=== PATIENT | female | born 1985 | race Caucasian/White ===

== ENCOUNTER 2017-08-22 07:19 | Observation (INO) | payer OTHER | END 2017-08-22 11:08 | disposition home or self-care (01) | LOC: INTOOBSV 07:19 → FLD 07:19 | PROVIDERS: ADMIT Obstetrics & Gynecology; ATTEND Obstetrics & Gynecology | DX: O99.89 Other specified diseases and conditions complicating pregnancy, childbirth and the puerperium (principal); Z3A.39 39 weeks gestation of pregnancy ==

== ENCOUNTER 2017-08-22 20:25 | Inpatient (IN) | payer OTHER ==
[2017-08-22] MEDS ORDERED: OLIVE OIL 118 ML BTL MISC PRN (20:46)
[2017-08-22] MEDS ORDERED: TERBUTALINE SULFATE 1 MG/ML VIAL IV PRN (20:46)
[2017-08-22] MEDS ORDERED: OXYTOCIN 20 UNIT in LR 1,000 ML IV PRN (20:46)
[2017-08-22] MEDS ORDERED: EPSOM SALT 454 GM TP PRN (20:46)
[2017-08-22] MEDS ORDERED: LR 1,000 ML IV PRN (20:46)
[2017-08-22 21:16] LABS: % IMMATURE GRANULYOCYTES 1.1 % (0.0-1.1); ABSOLUTE IMMATURE GRANULOCYTES 0.14 10^3/uL (0.00-0.10); ADD DIFF? NO; ADD MORPH? NO; ADD SCAN? NO; ATYPICAL LYMPHOCYTE FLAG 0 (0-99); FRAGMENT RBC FLAG 0 (0-99); HEMATOCRIT 40.2 % (38.0-47.0); HEMOGLOBIN 13.8 g/dL (12.6-16.3); LEFT SHIFT FLG 10 (0-99); LIPEMIA HEMOLYSIS FLAG 90 (0-99); MEAN CELL HEMOGLOBIN 27.7 pg (27.9-34.1); MEAN CELL HEMOGLOBIN CONCENTR. 34.3 g/dL (32.4-36.7); MEAN CELL VOLUME 80.6 fL (81.5-99.8); MEAN PLATELET VOLUME 9.6 fL (8.7-11.7); PLATELET CLUMPS FLAG 0 (0-99); PLATELET COUNT 232 10^3/uL (150-400); RED BLOOD CELL COUNT 4.99 10^6/uL (4.18-5.33); RED CELL DISTRIBUTION WIDTH 14.3 % (11.5-15.2)
[2017-08-22] MEDS ORDERED: fentaNYL 2MCG/ML/BUP 0.1% RTU 100 ML BAG EP ONE (21:30)
[2017-08-22] MEDS ORDERED: BUPIVACAINE 0.25% 30 ML SDV ONE (21:31)
[2017-08-22] MEDS ORDERED: PHENYLEPHRINE HCL 100 MCG/ML SYR ONE (21:31)
[2017-08-22] MEDS ORDERED: LIDO/EPI 2% **for epidural** 20 ML SDV ONE (22:06)
[2017-08-22] MEDS ORDERED: PHENYLEPHRINE HCL 100 MCG/ML SYR IVP PRN (22:25)
[2017-08-22] MEDS ORDERED: ONDANSETRON 4 MG/2 ML VIAL IVP PRN (22:25)
--- NOTE | 2017-08-22 22:25 | PREANESOB ---
Obstetric Pre-Anesthesia Info - General Info Proposed Procedure: Continuous Labor Epidural for pain control during labor : 1 Para: 0 - Info Status: Full Term Monitors: External FHR Baseline (bpm): 120 - Labor Status Cervical Dilation per last OB SVE: 3 Magnesium Sulfate in Use: No Indications for Labor Analgesia: Pain Control Labor Epidural: Yes Anesthesia ROS: Review of systems negative except for patient in labor Allergies/Adverse Reactions: Allergy/AdvReac Type Severity Reaction Status Date / Time Sulfa (Sulfonamide Allergy Verified 08/22/17 10:49 Antibiotics) Home Medications: Medication Instructions Recorded Vit27&Calcium/Iron/FA 08/22/17 [] Visit Medications: Generic Name Dose Route Start Last Admin Trade Name Freq PRN Reason Stop Dose Admin Lactated Ringer's 1,000 mls @ 0 mls/hr 08/22/17 20:46 Lr IV 02/18/18 20:45 PRN PRN SEE PROTOCOL CONDITIONS Protocol Per Protocol Oxytocin 20 unit/ Lactated 1,002 mls @ 150 mls/hr 08/22/17 20:46 Ringer's IV PRN PRN Post- bleeding Ibuprofen 600 mg 08/22/17 20:46 Motrin PO 02/18/18 20:45 Q6HRS PRN post , inflammation Magnesium Sulfate 454 gm 08/22/17 20:46 Epsom Salt TP 02/18/18 20:45 Q1H PRN perineal discomfort Muir Oil 118 ml 08/22/17 20:46 Sweet Oil MISC 02/18/18 20:45 ONCE PRN perineal massage Terbutaline Sulfate 0.25 mg 08/22/17 20:46 Brethine IV 02/18/18 20:45 ONCE PRN Tachysystole Discontinued Medications Generic Name Dose Route Start Last Admin Trade Name Freq PRN Reason Stop Dose Admin Bupivacaine HCl Confirm 08/22/17 21:31 Sensorcaine 0.25% Sdv Administered 08/22/17 21:32 Dose 30 ml .ROUTE .STK-MED ONE Fentanyl/Bupivacaine HCl Confirm 08/22/17 21:30 Fentanyl/Bupivacaine/Ns 2 Mcg/Ml 0.1% (Premix Administered 08/22/17 21:31 Dose 100 ml EP .STK-MED ONE Lidocaine/Epinephrine Confirm 08/22/17 22:06 Xylocaine 2%-Epi 1:200,000 Administered 08/22/17 22:07 Dose 20 ml .ROUTE .STK-MED ONE Phenylephrine HCl Confirm 08/22/17 21:31 Neosynephrine Administered 08/22/17 21:32 Dose 1,000 mcg .ROUTE .STK-MED ONE - Anesthesia History Response to Local Anesthetics: Normal Anesthesia & Operative History: No Prior Problems Family Anesthesia History: Not Applicable - Social History Substance Use/Abuse: Denies - Focused Exam Latest Vital Signs (Nursing): See OB nursing notes Airway: Mallapati II, normal dentition. Respiratory: lungs clear, normal breath sounds Cardiovascular: normal peripheral pulses ASA Status: II Labs: 08/22/17 21:05 Patient ABO/Rh B POSITIVE 08/22/17 21:05 - Plan Consent Signed and on Chart: Yes Patient/Guardian Understands and Agrees to Plan: Yes Urgent/Emergent Case: Matthew valverde completed preop but documented later for safe timely pt care (Verbal interview obtained by Dr. Alan. Later documented as patient in distress from labor pain.)
[2017-08-22] MEDS ORDERED: fentaNYL 2MCG/ML/BUP 0.1% RTU 100 ML EP SCH (22:30)
[2017-08-22] MEDS ORDERED: LR 500 ML IV SCH (22:30)
--- NOTE | 2017-08-22 23:07 | OBPROG ---
Labor Progress Note Assessment/Plan: Assessment:cat 1 fhr contractions 2-6-7 minutes apart. pain well managed after the epidural exam after epidural 4-5/90/-2 cephalic soft probable OP positioning/ back pain slow progress prodromal labor probable rom 1500 this afternoon clear fluid at this time no meconium noted attempt to rom no fluid + bloody show Plan:pitocin per protocol , expectant management of labor 08/22/17 23:04 Subjective/Intrapartum Course: prodromal labor since . Srom minimal fluid probable at 1500 08/22/2017. Attempt arom no fluid. 08/22/17 23:02 Feeling better after the epidural. Denies pain. Ok with pitocin to allow for regular contractions. Reassuring fhr Objective: 08/22/17 21:05 Patient ABO/Rh B POSITIVE 08/22/17 21:05 - SVE Dilation (cm): 4, 5 Effacement (%): 90 Station: -1 Membranes: AROM - Procedures Non-surgical Procedures: Amniotomy, Other (Specify) (no fluid proble srom at 1500 today 08/22/2017) - Physical Exam General Appearance: WD/WN, alert, no apparent distress Respiratory: chest non-tender, lungs clear, normal breath sounds Cardiac/Chest: regular rate, rhythm Abdomen: normal bowel sounds Extremities: normal range of motion, Melissa's sign (negative bilaterally) DTR- Lower Extremities: Knee (R): 3+, Knee (L): 3+ (no clonus bilaterally) Skin: normal color, warm/dry Neuro/Psych: no motor/sensory deficits, alert, normal mood/affect, oriented x 3 Oxytocin Orders Assessment - Pre-Induction/Augmentation Assessment Gestational Age: 39 week(s) and 4 day(s) ICD10 Worksheet Patient Problems: Problems Problem Status Onset term labor Acute
[2017-08-22] MEDS ORDERED: LIDOCAINE 1% 300 MG/30 ML SDV ONE (23:15)
[2017-08-22] MEDS ORDERED: OLIVE OIL 118 ML BTL ONE (23:15)
[2017-08-22] MEDS ORDERED: TERBUTALINE SULFATE 1 MG/ML VIAL ONE (23:15)
[2017-08-22] MEDS ORDERED: AMMONIA AROMATIC 1 EACH AMP IH ONE (23:15)
[2017-08-22] MEDS ORDERED: OXYTOCIN 10 UNIT/ML VIAL ONE (23:15)
[2017-08-22] MEDS ORDERED: MISOPROSTOL 200 MCG TAB ONE (23:16)
[2017-08-22] MEDS ORDERED: OXYTOCIN/RINGERS LACTATE 500 ML IV SCH (23:30)
--- NOTE | 2017-08-23 00:03 | GHP ---
[f rep st] HISTORY AND PHYSICAL DATE OF ADMISSION: 08/22/2017 The patient is a 32-year-old, 1, para 0, with an EDC of 08/25/2017, which gives her a gestati onal age of 39-4/7 weeks. The patient has been coming since early in 1st trimester, 9 weeks to [facility] for care. The patient has been having prodromal labor since . Came in on ida for an exam and was sent home. Was 1 cm at that time. Came in again tonight at 9 o'clock. At that time, patient was 2-3 cm, 80%, 0 station. Cervix was anterior and soft. MEDICAL HISTORY: Benign. SURGICAL HISTORY: Negative. SOCIAL HISTORY: Patient lives with . This is patient's 1st . Denies tobacco use. Denies drug use. FAMILY HISTORY: Noncontributory. HISTORY: The patient has gained 50 pounds with the . GYNECOLOGICAL HISTORY: Noncontributory. LABS: Patient is B-positive. Antibody negative. RPR is nonreactive. Rubella is immune. Hepatitis is negative. HIV is negative. Trio screen was negative. Verifi was negative. Pap, gonorrhea and chlamydia were negative. 1-hour GTT was within normal limits. Hematocrit today is 40. ALLERGIES: Sulfa, hives and a rash. MEDICATIONS: vitamins. REVIEW OF SYSTEMS: Review of Systems x8 is noncontributory. PHYSICAL EXAMINATION: GENERAL: Patient is awake, alert, oriented x3. LUNGS: Clear bilaterally. A BDOMEN: Bowel sounds are positive in all 4 quadrants. EXTREMITIES: DTRs are 3+ bilaterally with no clonus. Denies PIH symptoms. Blood pressure is within normal limits. Melissa sign is negative bilat erally. On admission, patient was requesting epidural for pain relief. Epidural was placed without any diffi culties. Patient is now more comfortable. Pain has gone from a 10 to 1 or a 2. heart rate is category 1. Positive accelerations. No deceleration. PLAN OF CARE: 1. Group B streptococcus negative. 2. Pitocin per protocol. Contractions are 2 to 7 minutes apart. Exam after epidural, the patient h ad progressed to 4-5 cm, 90% effaced, I thought -1 station. Soft and anterior. /[id number]/MODL
--- NOTE | 2017-08-23 00:41 | OBPROG ---
Labor Progress Note Assessment/Plan: Assessment:cat 1 fhr contractions 2-6-7 minutes apart. pain well managed after the epidural exam after epidural 5/80/-2 cephalic soft/ no change to cervix probable OP positioning/ back pain slow progress prodromal labor probable rom 1500 this afternoon clear fluid at this time no meconium noted attempt to rom no fluid iupc placed unable to visualize contmultiple attempts to be able to shrimp picker contractions with toco Plan:pitocin per protocol , expectant management of labor 08/22/17 23:04 08/23/17 00:39 Subjective/Intrapartum Course: prodromal labor since . Srom minimal fluid probable at 1500 08/22/2017. Attempt arom no fluid. 08/22/17 23:02 Feeling better after the epidural. Denies pain. Ok with pitocin to allow for regular contractions. Reassuring fhr 08/23/17 00:38 Continues to be comfortable with epidural. Sleeping Objective: 08/22/17 21:05 Patient ABO/Rh B POSITIVE 08/22/17 21:05 - SVE Dilation (cm): 5 Effacement (%): 80 Station: -2 Membranes: AROM - Contraction Pattern Assessment Current Contraction Pattern: Irregular - Procedures Non-surgical Procedures: Amniotomy, Other (Specify) (no fluid proble srom at 1500 today 08/22/2017) Oxytocin Orders Assessment - Pre-Induction/Augmentation Assessment Gestational Age: 39 week(s) and 4 day(s) ICD10 Worksheet Patient Problems: Problems Problem Status Onset term labor Acute
[2017-08-23] MEDS ORDERED: ACETAMINOPHEN 500 MG TAB PO ONE (02:48)
--- NOTE | 2017-08-23 02:52 | OBPROG ---
Labor Progress Note Assessment/Plan: Assessment:cat 1 fhr contractions 2-3 minutes apart. pain well managed after the epidural exam after epidural 7-8/90/0 cephalic soft/ good change in cervix probable OP positioning/ back pain slow progress prodromal labor probable rom 1500 this afternoon clear fluid at this time no meconium noted adequete contractions adequete MVU on 4 mu pitocin temp 99.3 tylenol 1g now rebolus of epidural for pain relief Plan: expectant management of labor 08/22/17 23:04 08/23/17 00:39 08/23/17 02:50 Subjective/Intrapartum Course: prodromal labor since . Srom minimal fluid probable at 1500 08/22/2017. Attempt arom no fluid. 08/22/17 23:02 Feeling better after the epidural. Denies pain. Ok with pitocin to allow for regular contractions. Reassuring fhr 08/23/17 00:38 Continues to be comfortable with epidural. Sleeping 08/23/17 02:49 Feeling greater pain with the epidural. Change in cervix with exam. Objective: 08/22/17 21:05 Patient ABO/Rh B POSITIVE 08/22/17 21:05 - SVE Dilation (cm): 7, 8 Effacement (%): 90 Station: 0 Amniotic Fluid Color: Clear - Contraction Pattern Assessment Current Contraction Pattern: Regular - FHR Assessment Bell FHR (bpm): 150 FHR Pattern Variability: Moderate FHR Category: 2 - Procedures Non-surgical Procedures: Other (Specify) (no fluid proble srom at 1500 today ) Oxytocin Orders Assessment - Pre-Induction/Augmentation Assessment Gestational Age: 39 week(s) and 4 day(s) ICD10 Worksheet Patient Problems: Problems Problem Status Onset term labor Acute
[2017-08-23] MEDS ORDERED: BUPIVACAINE 0.25% 30 ML SDV ONE (03:05)
[2017-08-23] MEDS ORDERED: SIMETHICONE 80 MG TAB CHEW PO PRN (07:49)
[2017-08-23] MEDS ORDERED: HYDROCORTISONE 0.5% CREAM TP PRN (07:49)
[2017-08-23] MEDS ORDERED: ACETAMINOPHEN 325 MG TAB PO PRN (07:49)
--- NOTE | 2017-08-23 07:49 | OBDEL ---
Info Type: Vaginal Presentation at Delivery: Vertex L&D Analgesia/Anesthesia Type: Epidural GBS+: No Intrapartum Medications: Discontinued Medications Generic Name Dose Route Start Last Admin Trade Name Brando PRN Reason Stop Dose Admin Acetaminophen 1,000 mg 08/23/17 02:48 08/23/17 03:01 Tylenol PO 08/23/17 02:49 1,000 mg ONCE ONE Administration - Hospital Course Intrapartum: prodromal labor since . Srom minimal fluid probable at 1500 08/22/2017. Attempt arom no fluid. 08/22/17 23:02 Feeling better after the epidural. Denies pain. Ok with pitocin to allow for regular contractions. Reassuring fhr 08/23/17 00:38 Continues to be comfortable with epidural. Sleeping 08/23/17 02:49 Feeling greater pain with the epidural. Change in cervix with exam. Indications for Delivery: Spontaneous Labor, SROM Vaginal Delivery - Delivery Provider Delivery Physician/CNM: Jane Kennedy Proctoring Provider: Niurka Zuniga - Labor and Delivery Onset of Contractions Date: 08/20/17 Onset of Contractions Time: 21:00 Onset of Contractions Type: Spontaneous Rupture of Membranes Date: 08/21/17 Rupture of Membranes Time: 15:00 Rupture of Membranes Type: Spontaneous Amniotic Fluid Color: Meconium Stained Dilation Complete Date: 08/23/17 Dilation Complete Time: 06:31 Placenta Delivery Date: 08/23/17 Placenta Delivery Time: 07:27 Total Hours of Labor: 58 Non-surgical Procedures: IUPC, Other (Specify) (no fluid proble srom at 1500 today 08/22/2017) Laceration: 2nd Degree Repair: 3-0 Vaginal Sponge Count Correct: Yes Vaginal Needle Count Correct: Yes Vaginal Sweep Performed: No EBL: 350 Delivery Events: None - Medications Labor Augmentation/Induction Methods Used: Pitocin Labor Augmentation/Induction Indication: Contraction Strength Inadequate [place] Data Bell Delivery Date: 08/23/17 Delivery Time: 07:13 ALICIA: 08/26/17 Gestational Age: 39 week(s) and 4 day(s) Sex of Infant: Male Score (1 Min): 8 Score (5 Min): 9 ICD10 Worksheet Patient Problems: Problems Problem Status Onset term labor Acute
[2017-08-23] MEDS: IBUPROFEN 600 MG TAB PO PRN ×3 (09:47→22:24)
--- NOTE | 2017-08-23 11:37 | POSTANESTH ---
Post Anesthetic Evaluation Cardiovascular Status: Normal, Stable, Similar to Pre-Op Cond Respiratory Status: Normal, Stable Level of Consciousness/Mental Status: Can Participate in Eval Pain Control: Adequate, Prn Tx Ordered Nausea/Vomiting Control: Adequate, Prn Tx Ordered Complications Possibly Related to Anesthesia: None Noted (Patient seen and evaluated after delivery, epidural removed & effects of epidural worn off. Patient has voided urine already and moving bilateral lower extremities. Patient happy with epidural.)
[2017-08-23] MEDS: HYDROCODONE/APAP 5/325 TAB PO PRN (22:24)
[2017-08-23] MEDS: DOCUSATE SODIUM 100 MG CAP PO PRN (22:24)
[2017-08-24] MEDS: IBUPROFEN 600 MG TAB PO PRN ×3 (04:43→17:51)
[2017-08-24 09:54] VITALS: RESP 18; O2SAT 96
--- NOTE | 2017-08-24 10:10 | OBPP ---
Progress Note Assessment/Plan: Assessment: s/p PPD # 1 - pt is stable Plan: Continue routine pp care Encourage ambulation Plan for d/c home in am 9/16 08/24/17 10:07 Subjective/ Course: 08/24/17 10:09 Pt seen and examined. Doing well, no complaints. Mild cramping. Ricky regular diet , voiding and passing flatus. Mod lochia. Baby boy is in NICU with BS issues. Pumping and using donor milk. Objective: 08/22/17 21:05 Patient ABO/Rh B POSITIVE 08/22/17 21:05 Temp Pulse Resp BP Pulse Ox 36.6 C 91 18 113/74 96 08/24/17 08:00 08/24/17 08:00 08/24/17 08:00 08/24/17 08:00 08/24/17 08:00 Uterine Position/Fundal Height: Umbilicus -2 Uterine Tone: Firm Physical Exam - Physical Exam Respiratory: lungs clear, normal breath sounds Cardiac/Chest: regular rate, rhythm Abdomen: normal bowel sounds, non-tender, soft, flatus (+) Extremities: non-tender, normal inspection Skin: normal color, warm/dry Neuro/Psych: alert, normal mood/affect, oriented x 3
[2017-08-24] MEDS: DOCUSATE SODIUM 100 MG CAP PO PRN ×2 (11:24→22:46)
[2017-08-24 20:38] VITALS: BP 131/80; PULSE 99; TEMP 97.7
[2017-08-24] MEDS: HYDROCODONE/APAP 5/325 TAB PO PRN (22:46)
[2017-08-25] MEDS: IBUPROFEN 600 MG TAB PO PRN ×2 (04:53→14:20)
--- NOTE | 2017-08-25 10:41 | OBPP ---
Progress Note Assessment/Plan: Assessment: with some difficulty baby possible tongue tie nipples sore and tender pain well regulated vs wnl ff2u scant rubra lochia edema 3+ bilaterally + voiding Plan: discharge to home with instructions to border, apno cream to assist with sore nipples, pain management, pelvis rest, depression, rest, bleeding patterns , ss infection, contraceptions, exercise, walking slow return to routine exercise 08/22/17 23:04 08/23/17 00:39 08/23/17 02:50 08/25/17 10:38 Subjective/ Course: 08/24/17 10:09 Pt seen and examined. Doing well, no complaints. Mild cramping. Ricky regular diet , voiding and passing flatus. Mod lochia. Baby boy is in NICU with BS issues. Pumping and using donor milk. 08/25/17 10:37 Doing well. Nipples sore, tender. Pain well managed, vs wnl, teary, worried about baby sugar regulation difficultys reassured Objective: 08/22/17 21:05 Patient ABO/Rh B POSITIVE 08/22/17 21:05 Temp Pulse Resp BP Pulse Ox 36.5 C 99 18 131/80 H 96 08/24/17 20:00 08/24/17 20:00 08/24/17 20:00 08/24/17 20:00 08/24/17 20:00 Uterine Position/Fundal Height: At Umbilicus Uterine Tone: Firm Physical Exam - Physical Exam General Appearance: WD/WN, alert, no apparent distress Abdomen: other (ff@u) Extremities: normal range of motion, Melissa's sign (negative bilaterally) DTR- Lower Extremities: Knee (R): 1+, Knee (L): 1+ (no clonus) Skin: normal color, warm/dry Neuro/Psych: no motor/sensory deficits, alert, normal mood/affect, oriented x 3
--- NOTE | 2017-08-25 10:42 | OBGCSDC ---
General Delivery Information - General Info : 1 Para: 1 Abortions: 0 Type: Vaginal L&D Analgesia/Anesthesia Type: Epidural Admission Date: 08/22/17 Labs: Patient ABO/Rh B POSITIVE 08/22/17 21:05 Hct 40.2 % (38.0-47.0) 08/22/17 21:05 - Hospital Course Intrapartum: prodromal labor since . Srom minimal fluid probable at 1500 08/22/2017. Attempt arom no fluid. 08/22/17 23:02 Feeling better after the epidural. Denies pain. Ok with pitocin to allow for regular contractions. Reassuring fhr 08/23/17 00:38 Continues to be comfortable with epidural. Sleeping 08/23/17 02:49 Feeling greater pain with the epidural. Change in cervix with exam. : 08/24/17 10:09 Pt seen and examined. Doing well, no complaints. Mild cramping. Ricky regular diet , voiding and passing flatus. Mod lochia. Baby boy is in NICU with BS issues. Pumping and using donor milk. 08/25/17 10:37 Doing well. Nipples sore, tender. Pain well managed, vs wnl, teary, worried about baby sugar regulation difficultys reassured Vaginal - Delivery Provider Delivery Physician/CNM: Jane Kennedy - Diagnosis Labor: Spontaneous Rupture of Membranes Type: Spontaneous Amniotic Fluid Color: Meconium Stained Laceration: 2nd Degree Repair: 3-0 Delivery Events: None - Procedures Non-surgical Procedures: IUPC, Other (Specify) (no fluid proble srom at 1500 today 08/22/2017) - Delivery Non-surgical Procedures: IUPC, Other (Specify) (no fluid proble srom at 1500 today 08/22/2017) EBL: 350 Data Bell Delivery Date: 08/23/17 Delivery Time: 07:13 ALICIA: 08/25/17 Gestational Age: 40 week(s) and 0 day(s) Sex of Infant: Male Weight (gm): 3220 g Score (1 Min): 8 Score (5 Min): 9
[2017-08-25] MEDS: DOCUSATE SODIUM 100 MG CAP PO PRN (17:46)
== END 2017-08-25 17:59 | disposition home or self-care (01) | DRG 775 ==
LOC: FLD 20:25 → OBSVTOIN 20:47 → FOB 08-23 11:53
PROVIDERS: ADMIT Obstetrics & Gynecology; ATTEND Obstetrics & Gynecology
PROC: 3E033VJ Introduction of Other Hormone into Peripheral Vein, Percutaneous Approach (ICD-10-PCS; principal; 2017-08-23)
PROC: 0KQM0ZZ Repair Perineum Muscle, Open Approach (ICD-10-PCS; principal; 2017-08-23)
PROC: 10E0XZZ Delivery of Products of Conception, External Approach (ICD-10-PCS; principal; 2017-08-23)
DX: O63.0 Prolonged first stage (of labor) (principal); O70.1 Second degree perineal laceration during delivery; Z37.0 Single live birth; Z3A.39 39 weeks gestation of pregnancy
CPT/HCPCS: G0463; J2370; J2590; J3105

== ENCOUNTER → 2017-09-01 | Outpatient (CLI) | payer OTHER | LOC: FLACT 13:15 | PROVIDERS: ATTEND Advanced Practice Midwife | DX: O92.13 Cracked nipple associated with lactation (principal) | CPT/HCPCS: G0463 ==